=== PATIENT | female | born 1970 | race Caucasian/White ===

== ENCOUNTER 2024-01-12 15:11 | Outpatient (AMB) | payer OTHER, SELFPAY ==
--- NOTE | 2024-01-12 15:17 | A.OFFPC_ITS ---
Vital Signs 01/12/24 15:22 Height 5 ft 7 in Weight 147 lb 4 oz BMI 23.1 BP 116/68 Blood Pressure Location Rt brachial Position Sitting Pulse 76 Pulse Source Pulse Oximeter Pulse Oximetry (%) 98 Oxygen Delivery Method Room Air Intake Visit Reasons: Establish Care not a transfer Allergies No Known Allergies Allergy (Verified 01/12/24 15:24) Tobacco use date assessed: 01/12/24 Dental Screening Dental Screen Date: 01/12/24 Did you have a dental visit in the last 12 months?: Yes Did you have a dental problem in the last 6 months where you did not have access to dental care?: No Was dental information given to patient?: Patient has dentist HPI HPI Comments History of Present Illness Details The patient is a 53-year-old female with a past medical history of hypothyroid, thyroid nodule, hyperlipidemia, hyperkalemia, pelvic mass, rectal cancer, tobacco use presenting to establish care. Transfer from [facility]. Hypothyroid: On [place] thyroid, Cytomel. Follows with [facility] History of rectal cancer: Follows with [facility] At the dentist recently they noted a mass at the back of the throat near the tonsil. 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 NAD EYES: EOMI. Anicteric. HENT: Moist mucous membranes. No scleral icterus. No cervical lymphadenopathy. LUNGS: Clear to auscultation bilaterally. CARDIOVASCULAR: Regular rate and rhythm. No murmur. No JVD. ABDOMEN: Soft, non-tender +bs EXTREMITIES: No edema. Non-tender. SKIN: No rashes or lesions. Warm. NEUROLOGIC: No focal neurological deficits. CN II-XII grossly intact PSYCHIATRIC: Cooperative. Appropriate mood and affect [facility] Medical History (Updated 01/12/24 @ 16:14 by Fouzia Olivo MD) Skin cancer Rectal cancer IBS (irritable bowel syndrome) Thyroid disease Surgical History (Updated 01/12/24 @ 15:29 by Janeen Campoverde CMA) History of reversal of ileostomy (~2017) History of hysterectomy (~2016) Family History (Updated 01/12/24 @ 15:32 by Janeen Campoverde CMA) Maternal Grandmother Thyroid disorder Social History (Updated 01/12/24 @ 15:30 by Janeen Campoverde [facility]) Household Members: None Housing: House Alcohol intake: current Alcohol intake frequency: a few times a month Patient Tobacco Use Status: Current everyday Tobacco user Cigarettes Per Day: 15 Years Smoked: 30 e-Cigarette/Vaping Use: Never Used service: No Current occupational status: employed 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 1. Little interest or pleasure in doing things: not at all 2. Feeling down, depressed, or hopeless: not at all 3. Trouble falling or staying asleep, or sleeping too much: not at all 4. Feeling tired or having little energy: several days 5. Poor appetite or overeating: not at all 6. Feeling bad about yourself - or that you are a failure or have let yourself or your family down: not at all 7. Trouble concentrating on things, such as reading the newspaper or watching television: not at all 8. Moving or speaking so slowly that other people could have noticed. Or the opposite - being so fidgety or restless that you have been moving around a lot more than usual: not at all 9. Thoughts that you would be better off or of hurting yourself in some way: not at all Total score: 1 Depression Screening Interpretation: Negative (neg) Depression Screening Done: Yes 79067 - PHQ-9 Billing: Yes Source: Developed by Drs. Mannie He, Mayra Payne, Geoff Galdamez and colleagues, with an educational rose from [employer]. Thrive Questionnaire Date Thrive assessed: 01/12/24 I am a: Patient What is your living situation today?: I have a steady place to live Within the past 12 months, did the food you bought not last and you didn't have the money to get more?: Never true Within the past 12 months, did you worry whether your food would run out before you got money to buy more?: Never true Do you have trouble paying for medicines?: No Do you have trouble getting transportation to medical appointments?: No Do you have trouble paying your heating and electricity bill?: No Do you have trouble taking care of your child, family member or friend?: No Do you have trouble with day-to-day activities such as bathing, preparing meals, shopping, managing finances, etc.?: No Are you currently unemployed and looking for a job?: No Are you interested in more education?: No THRIVE Score: 0 AUDIT C Alcohol Use Questionnaire (AUDIT-C) 1. How often do you have a drink containing alcohol?: 2-4 times a month 2. How many drinks containing alcohol do you have on a typical day when you are drinking?: 1 or 2 3. How often do you have six or more drinks on one occasion?: Never Total Score: 2 SUKHJINDER-7 AMB Questionnaire SUKHJINDER-7 Date SUKHJINDER - 7 assessed: 01/12/24 Feeling nervous, anxious, or on edge: 0 = Not at all Not being able to stop or control worryin = Not at all Worrying too much about different things: 0 = Not at all Trouble relaxin = Not at all Being so restless that it is hard to sit still: 0 = Not at all Becoming easily annoyed or irritable: 0 = Not at all Feeling afraid as if something awful might happen: 0 = Not at all Total SUKHJINDER-7 score (0-4 normal; 5-9 mild; 10-14 moderate; 15-21 severe): 0 Source: Developed by Drs. Mannie He, Mayra Payne, Geoff Galdamez and colleagues, with an educational rose from [employer]. SUKHJINDER-7 Assessment Billing SUKHJINDER-7 Assessment Tool: SUKHJINDER-7 Assessment 30332 Physical exam (Primary Care) Vital Signs: Last Vital Signs Pulse 76 01/12/24 15:22 BP 116/68 01/12/24 15:22 Pulse Ox 98 01/12/24 15:22 Oxygen Delivery Method Room Air 01/12/24 15:22 BMI result Body Mass Index 23.1 Tobacco/Smoking Status: Tobacco use Status Tobacco use date assessed 01/12/24 01/12/24 15:30 Patient Tobacco Use Status Current everyday Tobacco 01/12/24 15:30 e-Cigarette/Vaping Use Never Used 01/12/24 15:30 PHQ-9: PHQ-9 Score PHQ-9: Total score 1 01/25/24 10:02 Depression Screening Interpretation: Negative (neg) Thrive Assessment: Date of Thrive Assessment Date Thrive assessed 01/12/24 01/12/24 15:30 Assessment and Plan Assessment & Plan (1) Thyroid disease: Code(s): E07.9 - Disorder of thyroid, unspecified Plan: Monitor TSH (2) Tonsillar mass: Code(s): J35.8 - Other chronic diseases of tonsils and adenoids Plan: Referral to ENT Orders: Orders Complete Blood Count Auto Diff 01/12/24 Z85.048 - Personal history of other malignant neoplasm of rectum, rectosigmoid junction, and anus, E07.9 - Disorder of thyroid, unspecified, K13.70 - Unspecified lesions of oral mucosa, J35.8 - Other chronic diseases of tonsils and adenoids Comprehensive Met. Panel 01/12/24 Z85.048 - Personal history of other malignant neoplasm of rectum, rectosigmoid junction, and anus, E07.9 - Disorder of thyroid, unspecified, K13.70 - Unspecified lesions of oral mucosa, J35.8 - Other chronic diseases of tonsils and adenoids IRON PROFILE 01/12/24 Z85.048 - Personal history of other malignant neoplasm of rectum, rectosigmoid junction, and anus, E07.9 - Disorder of thyroid, unspecified, K13.70 - Unspecified lesions of oral mucosa, J35.8 - Other chronic diseases of tonsils and adenoids Lipid Panel 01/12/24 Z85.048 - Personal history of other malignant neoplasm of rectum, rectosigmoid junction, and anus, E07.9 - Disorder of thyroid, unspecified, K13.70 - Unspecified lesions of oral mucosa, J35.8 - Other chronic diseases of tonsils and adenoids Referrals Ear/Nose/Throat Referral J35.8 - Other chronic diseases of tonsils and adenoids Medications: New thyroid (pork) ([place] Thyroid) 60 mg PO .twice daily 180 tabs 3RF 90 days liothyronine (Cytomel) 5 mcg PO DAILY 90 tabs 3RF Coding Level of Care Code New Pt Level 4 (75026) Diagnoses Thyroid disease E07.9 Tonsillar mass J35.8 Additional Codes SUKHJINDER-7 Assessment Billing - SUKHJINDER-7 Assessment Tool: SUKHJINDER-7 Assessment 31672 ([id number])
[2024-01-12 15:22] VITALS: BP 116/68; PULSE 76; O2SAT 98; BMI 23.1
== END 2024-01-12 16:23 | disposition home or self-care (01) ==
PROVIDERS: PCP Internal Medicine; Visit Provider Internal Medicine
DX: E07.9 Disorder of thyroid, unspecified (principal); J35.8 Other chronic diseases of tonsils and adenoids
CPT/HCPCS: 99204

== ENCOUNTER 2024-01-20 08:18 | Outpatient (REF) | payer OTHER, SELFPAY ==
[2024-01-20 11:14] LABS: MANUAL DIFF FLAG NO
[2024-01-20 11:31] LABS: Basophils Percent Auto 0.5 % (0-2); Eosinophils Absolute Auto 0.1 X10*3/uL (0.0-0.4); Eosinophils Percent Auto 1.6 % (0-4); Hemoglobin 14.3 g/dl (12.0-16.0); Imm Gran Abs Auto 0.04 X10*3/uL (0.00-0.03); Imm Gran Pct Auto 0.5 % (0.0-0.4); Lymphocytes Percent Auto 22.8 % (20-40); Mean Corpuscular HGB Conc 33.3 g/dl (31.0-35.0); Mean Corpuscular Hemoglobin 31.8 pg (27.0-33.0); Mean Corpuscular Volume 95.8 fL (80.0-98.0); Mean Platelet Volume 10.4 fL (9.4-12.3); Monocytes Absolute Auto 0.5 X10*3/uL (0.1-1.2); Monocytes Percent Auto 5.9 % (2-11); Neutrophils Absolute Auto 5.9 x10*3/uL (2.0-8.3); Neutrophils Percent Auto 68.7 % (45-73); Platelet Count 258 X10*3/uL (160-400); Red Blood Count 4.49 X10*6/uL (4.20-5.50); Red Cell Distribution Width 13.8 % (11.0-16.0); White Blood Count 8.6 X10*3/uL (4.8-10.8)
[2024-01-20 12:02] LABS: Alanine Aminotransferase 12 U/L (0-31); Albumin Level 3.8 g/dL (3.5-5.0); Alkaline Phosphatase 91 U/L (39-117); Anion Gap 11 (12-20); Aspartate Amino Transferase 17 U/L (5-31); Bilirubin Total 0.4 mg/dL (0.0-1.0); Blood Urea Nitrogen 10 mg/dL (9-16); Calcium 9.5 mg/dL (8.4-10.2); Carbon Dioxide 28 mmol/L (22-29); Chloride 106 mmol/L (96-108); Cholesterol 200 mg/dL (<200); Estimated Glomerular Filt Rate > 60; Glucose Random 96 mg/dL (60-115); HDL Cholesterol 48 mg/dL (>40); Iron 96 mcg/dL (30-160); LDL Cholesterol Calculated 111 mg/dL (<100); Percent Iron Saturation 30 % (15-50); Potassium 4.4 mmol/L (3.3-5.1); Sodium 141 mmol/L (135-145); Total Iron Binding Capacity 317 mcg/dL (228-428); Triglycerides 208 mg/dL (<150); Unsaturated Iron Binding 221 ug/dL
== END 2024-01-20 08:19 | disposition home or self-care (01) ==
LOC: HO.WFDLDS 08:18
PROVIDERS: Visit Provider Internal Medicine
DX: Z13.6 Encounter for screening for cardiovascular disorders (principal); E07.9 Disorder of thyroid, unspecified; K13.70 Unspecified lesions of oral mucosa; J35.8 Other chronic diseases of tonsils and adenoids; Z85.048 Personal history of other malignant neoplasm of rectum, rectosigmoid junction, and anus
CPT/HCPCS: 36415; 80053; 80061; 83540; 85025

== ENCOUNTER 2024-08-05 15:24 | Outpatient (AMB) | payer OTHER, SELFPAY ==
--- NOTE | 2024-08-05 15:40 | A.OFFPC_ITS ---
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 Required: No Is last menstrual period known: No (hysterectomy) Post menopausal: No Patient : No Allergies No Known Allergies Allergy (Verified 08/05/24 15:43) Tobacco use date assessed: 08/05/24 Dental Screening Dental Screen Date: 08/05/24 Did you have a dental visit in the last 12 months?: Yes Did you have a dental problem in the last 6 months where you did not have access to dental care?: No Was dental information given to patient?: Patient has dentist HPI HPI Comments History of Present Illness Details The patient is a 53-year-old female with a past medical history of hypothyroid, thyroid nodule, hyperlipidemia, hyperkalemia, pelvic mass, rectal cancer, tobacco use presenting for follow up Hypothyroid: On [place] thyroid, Cytomel. Follows with [facility] History of rectal cancer: Follows with [facility] At the dentist recently they noted a mass at the back of the throat near the tonsil. Denies dysphagia, odynophagia. She went to ENT has larynoscopy-nothing was identified. She does not have any issues Interested in chantix. 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 NAD EYES: EOMI. Anicteric. HENT: Moist mucous membranes. No scleral icterus. No cervical lymphadenopathy. LUNGS: Clear to auscultation bilaterally. CARDIOVASCULAR: Regular rate and rhythm. No murmur. No JVD. ABDOMEN: Soft, non-tender +bs EXTREMITIES: No edema. Non-tender. SKIN: No rashes or lesions. Warm. NEUROLOGIC: No focal neurological deficits. CN II-XII grossly intact PSYCHIATRIC: Cooperative. Appropriate mood and affect [facility] Medical History H/O blood clots Skin cancer Rectal cancer IBS (irritable bowel syndrome) Thyroid disease Surgical History H/O tubal ligation History of reversal of ileostomy (~2017) History of hysterectomy (~2016) Family History Maternal Grandmother Thyroid disorder Maternal Grandfather FH: mental illness Social History Household Members: None Housing: House Alcohol intake: current Alcohol intake frequency: a few times a month Patient Tobacco Use Status: Current everyday Tobacco user Cigarettes Per Day: 15 Years Smoked: 30 e-Cigarette/Vaping Use: Never Used service: No Current occupational status: employed 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 1. Little interest or pleasure in doing things: several days 2. Feeling down, depressed, or hopeless: not at all 3. Trouble falling or staying asleep, or sleeping too much: not at all 4. Feeling tired or having little energy: several days 5. Poor appetite or overeating: not at all 6. Feeling bad about yourself - or that you are a failure or have let yourself or your family down: not at all 7. Trouble concentrating on things, such as reading the newspaper or watching television: not at all 8. Moving or speaking so slowly that other people could have noticed. Or the opposite - being so fidgety or restless that you have been moving around a lot more than usual: not at all 9. Thoughts that you would be better off or of hurting yourself in some way: not at all Total score: 2 Depression Screening Interpretation: Negative Depression Screening Done: Yes 57930 - PHQ-9 Billing: Yes Source: Developed by Drs. Mannie He, Mayra Payne, Geoff Galdamez and colleagues, with an educational rose from [employer]. Thrive Questionnaire Date Thrive assessed: 08/05/24 I am a: Patient What is your living situation today?: I have a steady place to live Within the past 12 months, did the food you bought not last and you didn't have the money to get more?: Never true Within the past 12 months, did you worry whether your food would run out before you got money to buy more?: Never true Do you have trouble paying for medicines?: No Do you have trouble getting transportation to medical appointments?: No Do you have trouble paying your heating and electricity bill?: I choose not to answer this question Do you have trouble taking care of your child, family member or friend?: No Do you have trouble with day-to-day activities such as bathing, preparing meals, shopping, managing finances, etc.?: No Are you currently unemployed and looking for a job?: No Are you interested in more education?: No Please select the resources that you would like help with: None Currently or been in a relationship where the following occur: No concerns reported THRIVE Score: 0 AUDIT C Alcohol Use Questionnaire (AUDIT-C) 1. How often do you have a drink containing alcohol?: 2-4 times a month 2. How many drinks containing alcohol do you have on a typical day when you are drinking?: 3 or 4 3. How often do you have six or more drinks on one occasion?: Never Total Score: 3 Score Reviewed/Action Taken: Yes SUKHJINDER-7 AMB Questionnaire SUKHJINDER-7 Date SUKHJINDER - 7 assessed: 08/05/24 Feeling nervous, anxious, or on edge: 0 = Not at all Not being able to stop or control worryin = Not at all Worrying too much about different things: 0 = Not at all Trouble relaxin = Not at all Being so restless that it is hard to sit still: 0 = Not at all Becoming easily annoyed or irritable: 0 = Not at all Feeling afraid as if something awful might happen: 0 = Not at all Total SUKHJINDER-7 score (0-4 normal; 5-9 mild; 10-14 moderate; 15-21 severe): 0 Source: Developed by Drs. Mannie He, Mayra Payne, Geoff Galdamez and colleagues, with an educational rose from [employer]. SUKHJINDER-7 Assessment Billing SUKHJINDER-7 Assessment Tool: SUKHJINDER-7 Assessment 18976 Physical exam (Primary Care) Vital Signs: Last Vital Signs Temp 98.3 F 08/05/24 15:47 Pulse 85 08/05/24 15:47 Resp 16 08/05/24 15:47 BP 134/64 08/05/24 15:47 Pulse Ox 99 08/05/24 15:47 Oxygen Delivery Method Room Air 08/05/24 15:47 BMI result Body Mass Index 23.8 Tobacco/Smoking Status: Tobacco use Status Tobacco use date assessed 08/05/24 08/05/24 15:45 Patient Tobacco Use Status Current everyday Tobacco 08/05/24 15:45 e-Cigarette/Vaping Use Never Used 08/05/24 15:45 PHQ-9: PHQ-9 Score PHQ-9: Total score 2 08/05/24 15:45 Depression Screening Interpretation: Negative Thrive Assessment: Date of Thrive Assessment Date Thrive assessed 08/05/24 08/05/24 15:45 Currently or been in a relationship where the following occur: No concerns reported Coding Level of Care Code Est Pt Level 4 (39630) Diagnoses Tobacco use Z72.0 Thyroid disease E07.9 History of rectal cancer Z85.048 Additional Codes SUKHJINDER-7 Assessment Billing - SUKHJINDER-7 Assessment Tool: SUKHJINDER-7 Assessment 58970 ([id number]) PHQ-9 - 75861 - PHQ-9 Billing: Yes ([id number]) Assessment & Plan Assessment & Plan (1) Tobacco use: Code(s): Z72.0 - Tobacco use Category: Social Hx Plan: Start chantix starting pack (2) Thyroid disease: Code(s): E07.9 - Disorder of thyroid, unspecified Category: Medical Plan: [facility] (3) History of rectal cancer: Code(s): Z85.048 - Personal history of other malignant neoplasm of rectum, rectosigmoid junction, and anus Category: Medical Plan: Continue follow up with GI Medications: New varenicline tartrate (Chantix Starting Month Box) PO PER PKG DIR 53 ea 0RF
[2024-08-05 15:47] VITALS: BP 134/64; PULSE 85; RESP 16; TEMP 36.8; O2SAT 99; BMI 23.8
--- OUTSIDE RECORDS SUMMARY | 2024-08-05 18:55 | XMS_ITS | Data Portability ---
Author Organization [place] - [facility], Allergy Address [address] [address] Care Team Providers Care Billboard Erector Name Role Phone ASIA GEORGE Referring Provider [phone] Assessment Encounter Date Assessment Date Assessment LastModified by Organization Details LastModified Time 02/11/2024 02/11/2024 Fortunately physical examination today is benign. I do not appreciate any lesions near the right tonsil or soft palate. It is soft to palpation. Fiberoptic laryngoscopy and examination of pharynx was also benign. Reassurance was given that I believe her lesion has resolved. If she appreciates growth or any symptoms she understands to follow-up for an opportunity to reevaluate dplosky Not available 02/11/2024 11:48:49 Plan of Treatment Reminders Order Date Submit Date Provider Last Modified By Organization Details Last Modified Time Details Appointments None record ed. Lab None record ed. Referral None record ed. Procedures None record ed. Surgeries None record ed. Imaging None record ed. Medication Orders None record ed. Patient TargetsNo targets recorded. Patient InstructionsNo instructions recorded. Reason for Referral None Reported. Problems Name Problem SNOMED Code Status Onset Date Resolution Date Notes Provider Name and Address Organization Details Recorded Time Lesion of oral mucosa [id number] Active 2023 JENI DIAZ MD [address] [facility] [address], [address], [place] - [facility] 4 11:48:16 Problem Notes None recorded. Procedures Surgical History Date Name Laterality Status Provider Name and Address Organization Details Recorded Time FOL_DP completed JENI DIAZ MD [address] [place] [address], [place], [address], [facility] - [facility] [place] 02/11/2024 11:46:41 6 Hysterectomy completed Mraely Jacob [place] - [facility] 02/11/2024 11:36:09 Imaging Results None recorded. Procedure Notes None recorded. Medical Equipment None Reported. Allergies No known drug allergies Medications Name Sig Start Date Stop Date Status Note LastModified by Organization Details LastModified Time [place] Thyroid 60 mg tablet TAKE 1 TABLET BY MOUTH TWICE A DAY active Not Available Not Available No t Available liothyronin e 5 mcg tablet TAKE 1 TABLET BY MOUTH TWICE A DAY 02/10 completed Not Available Not Available Not Available estradiol 1 mg tablet TAKE 1 TABLET BY MOUTH EVERY DAY 02/10 completed Not Available Not Available Not Available clindamycin phosphate 1 % topical solution PLEASE SEE ATTACHED FOR DETAILED DIRECTION S 02/10 completed Not Available Not Available Not Available Cytomel active Not Available Not Avail able Not Available Estrogenic Substance active Not Available Not Available No t Available sodium,pota ssium,mag sulfates 17.5 gram-3.13 gram-1.6 gram oral soln PER GI OFFICE 02/10 completed Not Available Not Available Not Available Vitals Date Recorded Body height Body mass index (BMI) Body weight Provider Name and Address Organization Details Last Updated DateTime 02/11/2024 170.18 cm 22.7 kg/m2 51851.89 g Marely Jacob [place] - [facility] 02/11/2024 11:31:04 Social History None recorded. Functional Status None recorded. Mental Status None recorded. Family History Nothing Reported. Medical History Condition Response Cancer Y Thyroid Problems Y Gynecological HistoryNo gynecological history recorded. Obstetrics History GPAL:G 0 P 0 0 0 0 Past Encounters Encounter ID Performer Location Encounter Start Date Encounter Closed Date Diagnosis/Indication Diagnosis SNOMED-CT Code Diagnosis ICD10 Code Diagnosis Note [id number] JENI DIAZ MD [facility] [address] [address] 02/11/2024 10:59:44 02/11/2024 11:51:22 Lesion of oral mucosa [id number] 510667 K13.70 Health Concerns Section Related Observation LastModified by Organization Detai ls LastModified Time None Recorded Concern Status LastModified by Organization Details LastModified Time None Recorded Advance Directives Directive None Recorded Payers Encounter Date Sequence Insurance Name Policy Number Policy Sahu Covered Member ID Sahu Member ID Guarantor Name 02/11/2024 1 [facility] [id number] Janette Hernandez [id number] Janette Hernandez Notes Date Note Type Note Provider Name and Address Organization Details Recorded Time 02/11/2024 text/html mass right throa tnoted by dentist around 10/2023, re-eval thought it improvedno dysphagia for liquid or solid+tonsil stonesno hemoptysistobacco - 1/2ppd hx of SCCA skin right leg 2011rectal cancer 2017, tx with low ant resection with Sinan DIAZ MD [address] [place] [address], [place], [address], [place] - [facility] 02/11/2024 11:49:11 OBGyn Episode No OBEpisode recorded.
== END 2024-08-05 16:02 | disposition home or self-care (01) ==
PROVIDERS: PCP Internal Medicine; Visit Provider Internal Medicine
DX: Z72.0 Tobacco use (principal); E07.9 Disorder of thyroid, unspecified; Z85.048 Personal history of other malignant neoplasm of rectum, rectosigmoid junction, and anus

== ENCOUNTER → 2024-08-05 15:24 | Outpatient (BNVA) | payer OTHER, SELFPAY | PROVIDERS: PCP Internal Medicine; Visit Provider Internal Medicine | DX: E07.9 Disorder of thyroid, unspecified (principal); E03.9 Hypothyroidism, unspecified; Z85.048 Personal history of other malignant neoplasm of rectum, rectosigmoid junction, and anus; Z72.0 Tobacco use | CPT/HCPCS: 96127 ==

== ENCOUNTER 2025-04-04 14:53 | Outpatient (AMB) | payer OTHER, SELFPAY ==
--- OUTSIDE RECORDS SUMMARY | 2024-08-27 13:00 | XMS_ITS | Encounter Summary ---
Author Organization [facility] Address [address] [place] [address] Phone Care Team Providers Care Sliver Former Name Role Phone Fouzia Oakes MD Primary Care Provider Encounter Details Date Type Department Care Team (Late st Contact Info) Description 08/27/2024 2:00 PM EDT Hospital Encounter [facility] [address] [place] [address] [phone] Nisreen Perez, FUNDRAISING COORDINATOR [address] [place] [address] [email or web address] Social History Tobacco Use Types Packs/Day Years Used Date Smoking Tobacco: Never Assessed Education Answer Date Recorded Are you interested in more education? Not on carlin e 08/27/2024 Are you concerned about learning? Not on file 08/27/2024 No 08/27/2024 No 08/27/2024 Digital Access Answer Date Recorded No 08/27/2024 No 08/27/2024 Reliable internet access at home? Not on file 08/27/2024 Device with a working camera? Not on file Comments Unknown Sex and Gender Information Value Date Recorded Sex Assigned at Not on file Legal Sex Female 12:14 PM EDT Gender Identity Not on file Sexual Orientation Not on file documented as of this encounter Plan of Treatment Not on file documented as of this encounter Procedures Procedure Name Priority Date/Time Associated Diagnosis Comments XR CHEST PA AND LATERAL 2 VIEWS Urgent/patient waiting 08/27/2024 2:03 PM EDT Cough documented in this encounter Results * XR CHEST PA AND LATERAL 2 VIEWS (08/27/2024 2:03 PM EDT) Anatomical Region Laterality Modality Chest Computed Radiogr aphy 08/27/2024 2:54 PM EDT Impressions 08/27/2024 2:54 PM EDT No pneumonia or acute cardiopulmonary process. Narrative 08/27/2024 2:54 PM EDT XR CHEST PA AND LATERAL 2 VIEWS Referring clinician's provided indication for this examination in Epic: Cough COMPARISON: None. FINDINGS: Devices/Tubes/Lines: None. Lungs: No focal consolidation or pulmonary edema. Pleura: No pleural effusion or pneumothorax. Heart/Mediastinum: Normal cardiac silhouette. Normal mediastinal contours. Bones/Soft Tissues: No acute osseous abnormality. Procedure Note Roby Coleman MD - 08/27/2024 XR CHEST PA AND LATERAL 2 VIEWS Referring clinician's provided indication for this examination in Epic:Cough COMPARISON: None. FINDINGS: Devices/Tubes/Lines: None. Lungs: No focal consolidation or pulmonary edema. Pleura: No pleural effusion or pneumothorax. Heart/Mediastinum: Normal cardiac silhouette. Normal mediastinalcontours. Bones/Soft Tissues: No acute osseous abnormality. IMPRESSION: No pneumonia or acute cardiopulmonary process. Nisreen Perez FUNDRAISING COORDINATOR IMG XR CHEST Final R esult documented in this encounter Visit Diagnoses Not on filedocumented in this encounter Additional Health Concerns Infection Onset Date Last Indicated Resolved Time CoV-Risk 08/27/2024 08/27/2024 09/07/2024 1:23 AM EDT Influenza A 08/27/2024 08/27/2024 09/03/2024 1:24 AM EDT documented as of this encounter Care Teams Sliver Former Relationship Specialty Start Date End Date Fouzia Oakes MD PCP - General Internal Medicine 08/27/24 documented as of this encounter Additional Source Comments The information contained in this document represents components of the legal health record. It is not the complete legal health record.[facility]
--- NOTE | 2025-04-04 14:57 | A.OFFPC_ITS ---
Vital Signs 04/04/25 15:02 Height 5 ft 7 in Weight 144 lb 2 oz BMI 22.6 BP 118/72 Blood Pressure Location Lt brachial Position Sitting Respiration 16 Pulse 82 Pulse Source Pulse Oximeter Temp 97.6 F Temp Source Temporal Artery Scan Pulse Oximetry (%) 98 Oxygen Delivery Method Room Air Intake Visit Reasons: pink eye on her left eye Intake Note: Janette presents in the office today for pink eye (L). Started 2 days ago. Having blurry vision and itchiness. Allergies No Known Allergies Allergy (Verified 04/04/25 15:00) Tobacco use date assessed: 04/04/25 Dental Screening Dental Screen Date: 04/04/25 Did you have a dental visit in the last 12 months?: Yes Did you have a dental problem in the last 6 months where you did not have access to dental care?: No Was dental information given to patient?: Patient has dentist HPI HPI Comments History of Present Illness Details 54-year-old female presents with complai nts of constant blurry vision with itchiness and clear discharge of the left eye. She endorses some crust to the eye upon waking up in the morning. Her symptoms have been ongoing for 2 days. She denies pain to the eye. She denies sick contact. She has not taking any medication or perform supportive therapy for her symptoms. She denies fever, chills, body aches, fatigue. Denies sore throat [facility] Medical History H/O blood clots Skin cancer Rectal cancer IBS (irritable bowel syndrome) Thyroid disease Surgical History H/O tubal ligation History of reversal of ileostomy (~2017) History of hysterectomy (~2016) Family History Maternal Grandmother Thyroid disorder Maternal Grandfather FH: mental illness Social History (Updated 04/04/25 @ 15:02 by Karin Mccloud CMA) Household Members: None Housing: House Alcohol intake: current Alcohol intake frequency: a few times a month Patient Tobacco Use Status: Current everyday Tobacco user Cigarettes Per Day: 15 Years Smoked: 30 e-Cigarette/Vaping Use: Never Used Second Hand Smoke Exposure: Yes service: No Current occupational status: employed 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 Cognitive needs: No Hearing needs: No Vision needs: Yes Questionnaire Thrive Questionnaire Date Thrive assessed: 08/05/24 I am a: Patient What is your living situation today?: I have a steady place to live Within the past 12 months, did the food you bought not last and you didn't have the money to get more?: Never true Within the past 12 months, did you worry whether your food would run out before you got money to buy more?: Never true Do you have trouble paying for medicines?: No Do you have trouble getting transportation to medical appointments?: No Do you have trouble paying your heating and electricity bill?: I choose not to answer this question Do you have trouble taking care of your child, family member or friend?: No Do you have trouble with day-to-day activities such as bathing, preparing meals, shopping, managing finances, etc.?: No Are you currently unemployed and looking for a job?: No Are you interested in more education?: No Please select the resources that you would like help with: None Currently or been in a relationship where the following occur: No concerns reported THRIVE Score: 0 SUKHJINDER-7 AMB Questionnaire SUKHJINDER-7 Date SUKHJINDER - 7 assessed: 08/05/24 Source: Developed by Drs. Mannie He, Mayra Payne, Geoff Galdamez and colleagues, with an educational rose from [employer]. Review of Systems Const Details: Const Denies chills, Denies fatigue, Denies fever(s), Denies headache(s) and Denies weakness ENT Reports as per HPI Card Denies chest pain, Denies lightheadedness, Denies dyspnea and Denies other ( Palpitations) Resp Denies cough, Denies dyspnea, Denies wheezing and Denies other ( shortness of breath) Physical exam (Primary Care) Vital Signs: Last Vital Signs Temp 97.6 F 04/04/25 15:02 Pulse 82 04/04/25 15:02 Resp 16 04/04/25 15:02 BP 118/72 04/04/25 15:02 Pulse Ox 98 04/04/25 15:02 Oxygen Delivery Method Room Air 04/04/25 15:02 BMI result Body Mass Index 22.6 Tobacco/Smoking Status: Tobacco use Status Tobacco use date assessed 04/04/25 04/04/25 15:04 Patient Tobacco Use Status Current everyday Tobacco 04/04/25 15:01 e-Cigarette/Vaping Use Never Used 04/04/25 15:01 Thrive Assessment: Date of Thrive Assessment Date Thrive assessed 08/05/24 04/04/25 14:59 Currently or been in a relationship where the following occur: No concerns reported Const Other: General: no acute distress, well developed, alert and awake Nutritional Appearance: well nourished Orientation/consciousness: patient oriented x3 HENMT Head is normocephalic Sclera of left eye with minimal erythema and clear drainage. Right eye is normal Bilateral ear canal and TM are normal Nasal turbinates and oropharynx are pink and moist Sinuses are nontender with palpation No auricular or cervical lymphadenopathy Chest Chest palpation & inspection: normal inspection of the chest Resp Effort & Inspection: normal respiratory effort Auscultation: clear to auscultation bilaterally Cardio Rate: regular rate Rhythm: regular rhythm Heart sounds: S1 normal heart sound present, S2 normal heart sound present, no gallops, no murmurs and no rubs Bruits: no abdominal aortic bruits and no carotid bruits GI Palpation (GI): No Abdominal aortic bruit present, Soft to palpation, nontender, No hepatosplenomegaly present and No Rebound tenderness present Auscultation: normal bowel sounds Skin General: warm and dry. Normal skin color. Normal skin turgor Coding Level of Care Code Est Pt Level 3 (95542) Diagnoses Conjunctivitis of left eye H10.9 Assessment & Plan Assessment & Plan (1) Conjunctivitis of left eye: Code(s): H10.9 - Unspecified conjunctivitis Category: Medical Plan: Sclera of left eye with minimal erythema and clear drainage. Right eye is normal Likely viral or allergies, although bacterial is possible. Warm compresses encouraged. May take Tylenol ibuprofen for pain or discomfort. Erythromycin ointment as prescribed. Follow-up with worsening or new symptoms. Verbalized understanding and agreed with the plan. Medications: New erythromycin 1 appl ophthalmic-Left TID 3.5 grams 0RF 7 days
[2025-04-04 15:02] VITALS: BP 118/72; PULSE 82; RESP 16; TEMP 36.4; O2SAT 98; BMI 22.6
--- OUTSIDE RECORDS SUMMARY | 2025-04-04 16:21 | XMS_ITS | Clinical Summary ---
Author Organization [facility] Address [id number] [place] [address] Phone Care Team Providers Care Log Buncher Name Role Phone Fouzia Oakes MD Primary Care Provider Allergies Active Allergy Reactions Criticality Noted Date Comments Monosodium Glutamate Dizziness 08/27/2024 Diarrhea - faint. Medications estradioL (ESTRACE) 1 MG tablet Take 1 tablet by mouth every morning. 07/15/2024 Active thyroid, pork, 60 mg Tab Take 60 mg by mouth daily. Active liothyronine (CYTOMEL) 5 MCG tablet Take 5 mcg by mouth daily. Active Active Problems No known active problems Social History Tobacco Use Types Packs/Day Years [...] on file Sexual Orientation Not on file Last Filed Vital Signs Vital Sign Reading Time Taken Comments Blood Pressure 118/70 08/27/2024 1:35 PM EDT Pulse 85 08/27/2024 1:35 PM EDT Temperature 37.5 C (99.5 F) 08/27/2024 1:35 PM EDT Respiratory Rate 20 08/27/2024 1:35 PM EDT Oxygen Saturation 99% 08/27/2024 1:35 PM EDT Inhaled Oxygen Concentration - - Weight - - Height - - Body Mass Index - - Plan of Treatment Health Maintenance Due Date Last Done Comments Adult Td,Tdap Booster 1968 LIPID PANEL 1968 TSH LEVEL 1968 DEPRESSION SCREENING 1980 SMOKING Hx and SMOKELESS TOBACCO SCREENING 1981 HEPATITIS C SCREENING 1986 HIV ONE-TIME SCREENING (18-6 5 YEARS) 1986 PAP SMEAR 1989 MAMMOGRAM 2008 COLOGUARD 2013 COLONOSCOPY 2013 COLORECTAL CANCER SCREENING 2013 FIT TEST 2013 FOBT 2013 SIGMOIDOSCOPY 2013 VIRTUAL COLONOSCOPY 2013 PNEUMOCOCCAL VACCINES (50+ years) (1 of 1 - PCV) 2018 ZOSTER VACCINES (1 of 2) 2018 INFLUENZA VACCINE (#1) 2024 COVID-19 VACCINE (4 - 2024-2 6 season) 2025 05/28/2021, 08/19/2020, 07/22/2020 RSV VACCINE (1 - 1-dose 75+ series) 09/17/2043 HEPATITIS A VACCINES Aged Out No long er eligible based on patient's age to complete this topic HIB VACCINES Aged Out No longer eligi ble based on patient's age to complete this topic MENINGOCOCCAL VACCINES (ACWY) Aged Out No longer eligible based on patient's age to complete this topic MENINGOCOCCAL VACCINES (B) Aged Out N o longer eligible based on patient's age to complete this topic Medical Devices Not on file Insurance Bi02 Medical Bi[employer] [facility] Member Subscriber Plan / Payer (Ef fective 2024-) Name:Janette Hernandez Relation to Subscriber:Self Name:Janette Hernandez Payer ID:[id number] (NAIC) Type:PPO Address: [address] [place] [facility] Member Subscriber Plan / Payer (Ef fective 2024-) Name:Janette Hernandez Relation to Subscriber:Self Name:Janette Hernandez Payer ID:[id number] (NAIC) Type:PPO Address: [address] [facility] [place] Member Subscriber Plan / Payer (Ef fective 2024-Present) Name:Janette Hernandez Relation to Subscriber:Self Name:Janette Hernandez Payer ID:[id number] (NAIC) Type:PPO [address] Care Teams Log Buncher Relationship Specialty Start Date End Date Fouzia Oakes MD PCP - General Internal Medicine 08/27/24 Additional Source Comments The information contained in this document represents components of the legal health record. It is not the complete legal health record.[facility]
--- OUTSIDE RECORDS SUMMARY | 2025-04-04 16:21 | XMS_ITS | Data Portability ---
Author Organization [place] [facility], Allergy Address [address] [address] Care Team Providers Care Lead Quality Control Technician Name Role Phone AngeliqueASIA NELSON Referring Provider Assessment Encounter Date Assessment Date Assessment LastModified [...] Details Recorded Time Lesion of oral mucosa [id number] Active 2023 JENI DIAZ MD [address] [place] [address], [phone], [place] - [facility] 4 11:48:16 Problem Notes None recorded. Procedures Surgical History Date Name Laterality Status Provider Name and Address Organization Details Recorded Time FOL_DP completed JENI DIAZ MD [address] [place] [address], [place], [phone], [facility] [place] 02/11/2024 11:46:41 6 Hysterectomy completed Marely Jacob [place] - [facility] 02/11/2024 11:36:09 Imaging Results None recorded. Procedure Notes None recorded. Medical Equipment None Reported. Allergies No known drug allergies Medications Name Sig Start Date Stop Date Status Note LastModified by Organization Details LastModified Time Balsam Thyroid 60 mg tablet TAKE 1 TABLET [...] Updated DateTime 02/11/2024 170.18 cm 22.7 kg/m2 48950.89 g Marely Jacob [place] - [facility] 02/11/2024 11:31:04 Social History None recorded. Functional Status None recorded. Mental Status None recorded. Family History Nothing Reported. Medical History Condition Response Cancer Y Thyroid Problems Y Gynecological HistoryNo gynecological history recorded. Obstetrics History GPAL:G 0 P 0 0 0 0 Past Encounters Encounter ID Performer Location Encounter Start Date Encounter Closed Date Diagnosis/Indication Diagnosis SNOMED-CT Code Diagnosis ICD10 Code Diagnosis IMO Codes Diagnosis Note [id number] JENI DIAZ MD [facility] [address] [phone] 02/11/2024 10:59:44 02/11/2024 11:51:22 Lesion of oral mucosa [id number] K13.70 Health Concerns Section Related Observation LastModified by Organization Detai ls LastModified Time None Recorded Concern Status LastModified by Organization Details LastModified Time None Recorded Advance Directives Directive None Recorded Payers Insurance Date Sequence Insurance Name Policy Number Policy Sahu Covered Member ID Sahu Member ID Guarantor Name 02/11/2024 1 [facility] [id number] Janette Hernandez [id number] Janette Hernandez Notes Date Note Type Note Provider Name and Address Organization Details Recorded Time 02/11/2024 text/html ROS as noted in the HPI mass right throatnoted by dentist around 10/2023, re-eval thought it improvedno dysphagia for liquid or solid+tonsil stonesno hemoptysistobacco - 1/2ppd hx of SCCA skin right leg 2011rectal cancer 2017, tx with low ant resection with Sinan DIAZ MD [address] [place] [address], [place], [phone], [place] - [facility] 02/11/2024 11:49:11 OBGyn Episode No OBEpisode recorded.
== END 2025-04-04 15:41 | disposition home or self-care (01) ==
LOC: HO.HMCFM 14:54
PROVIDERS: PCP Internal Medicine; Visit Provider Nurse Practitioner Family
DX: H10.9 Unspecified conjunctivitis (principal)